=== PATIENT | male | born 1985 | race Caucasian/White ===

== ENCOUNTER 2017-06-28 21:20 | Emergency (ER) | payer OTHER ==
[~2017-06-28] VITALS: Ht 170.2 cm; Wt 90.7 kg
--- NOTE | 2017-06-28 21:28 | ED DYSPNEA/ASTHMA COMPLAINT ---
History of Present Illness General Chief Complaint: Wheezing/Asthma Stated Complaint: ASTHMA ATTACK? Source: patient Exam Limitations: no limitations Vital Signs & Intake/Output Vital Signs & Intake/Output Vital Signs Date Time Temp Pulse Resp B/P B/P Pulse O2 O2 Flow FiO2 Mean Ox Delivery Rate 06/29 2207 96 Room Air 06/28 2122 96.7 95 22 160/84 97 Room Air Allergies Coded Allergies: No Known Allergies (06/28/17) Triage Note: PT TO TRIAGE C/O ASTHMA ATTACK WITHOUT EFFECT FROM INHALER. PT STATES SHE HAS BEEN HAVING DIFFICULTY BREATHING X1 WEEK. PT WITH HOARSE VOICE. SATTING 97% IN TRIAGE. INS/EXP WHEEZING NOTED. Triage Nurses Notes Reviewed? yes HPI: 31M PMH mild intermittent asthma with just PRN Albuterol, has had 1-2 weeks of progressively worsening SOB with cough and thick yellow sputum. Recently traveled to [place], no sick contacts. Denies fever, chills, headache, sore throat, stiff neck, abdominal pain, diarrhea, dysuria. Has chest pain with deep coughing. Never been intubated, infrequent exacerbations. (Bill HOGUE,Rajesh) Reconcile Medications Albuterol Sulfate (Proventil Hfa) 90 MCG HFA.AER.AD 2 PUF INH Q4 PRN ASTHMA Prednisone 20 MG TABLET 1 TAB PO BID ASTHMA (Erasmo Dexter) Past History Travel History Traveled to [facility] past 21 day No Medical History Any Pertinent Medical History? 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 No (Bill HOGUE,Rajesh) Review of Systems Review of Systems Constitutional: Reports: no symptoms. EENTM: Reports: no symptoms. Respiratory: Reports: no symptoms. Cardiovascular: Reports: no symptoms. GI: Reports: no symptoms. Genitourinary: Reports: no symptoms. Musculoskeletal: Reports: no symptoms. Skin: Reports: no symptoms. Neurological/Psychological: Reports: no symptoms. Hematologic/Endocrine: Reports: no symptoms. Immunologic/Allergic: Reports: no symptoms. All Other Systems: Reviewed and Negative (Rajesh France MD) Physical Exam Physical Exam General Appearance: well developed/nourished, mild distress Head: atraumatic, normal appearance Eyes: Bilateral: normal appearance. Ears, Nose, Throat: normal ENT inspection, hearing grossly normal Neck: normal inspection, supple, full range of motion Respiratory: wheezing Cardiovascular: regular rate/rhythm Gastrointestinal: soft, non-tender Extremities: normal inspection, normal range of motion Neurologic/Psych: awake, alert, oriented x 3, normal mood/affect Skin: intact, normal color, warm/dry Core Measures ACS in differential dx? No CVA/TIA Diagnosis No Sepsis Present: No Sepsis Focused Exam Completed? No (Rajesh France MD) Progress Differential Diagnosis: asthma, AMI, altitude sickness, bronchitis, costochondritis, CHF, COPD, musculoskeletal pain, pericarditis, pulmonary embolism, pneumonia, pneumothorax, rib fracture, unstable angina Plan of Care: Orders Procedure Date/time Status XRY-PORTABLE CHEST XRAY 06/28 2129 Active Improved after nebulizer treatment, now at baseline, no further wheezing, not hypoxic, CXR negative. Will discharge on Prednisone and Albuterol with outpatient follow up. Diagnostic Imaging: Viewed by Me: Radiology Read. Discussed w/RAD: Radiology Read. Radiology Impression: PATIENT: KADEN VELASQUEZ PRESENT AGE: 31 PATIENT ACCOUNT NO: [id number] : 83 LOCATION: [facility] ORDERING PHYSICIAN: Rajesh France MD SERVICE DATE: 06/28/17-2129 EXAM TYPE: RAD - XRY-PORTABLE CHEST XRAY EXAMINATION: XR PORTABLE CHEST CLINICAL INFORMATION: 31- year-old man with productive cough. COMPARISON: None TECHNIQUE: Portable frontal view of the chest was obtained. FINDINGS: The lungs are well expanded and clear, without evidence of focal airspace consolidation or pneumothorax. Heart size is within the range of normal. There are no pleural effusions. IMPRESSION: No radiographic evidence of an acute cardiopulmonary process. DICTATED BY: Monique Moran MD DATE/TIME DICTATED:06/28/172157 MARKETING TRAFFIC MANAGER:MIROSLAVA DATE/TIME TRANSCRIBED:06/28/172157 CONFIDENTIAL, DO NOT COPY WITHOUT APPROPRIATE AUTHORIZATION. <Electronically signed in Other Vendor System> SIGNED BY: Monique Moran MD 06/28/172201 Initial ED EKG: none (Rajesh France MD) Departure Departure Disposition: HOME OR SELF CARE Condition: Stable Clinical Impression Primary Impression: Asthma exacerbation Qualifiers: Asthma severity: mild Asthma persistence: intermittent Qualified Code: J45.21 - Mild intermittent asthma with (acute) exacerbation Secondary Impressions: Acute bronchitis Qualifiers: Bronchitis organism: unspecified organism Qualified Code: J20.9 - Acute bronchitis, unspecified Additional Instructions: Follow up with your PCP. Return to ER if new or worsening symptoms. Departure Forms: Customer Survey General Discharge Information Prescriptions: Current Visit Scripts Prednisone 1 TAB PO BID #10 TAB Albuterol Sulfate (Proventil Hfa) 2 PUF INH Q4 PRN ASTHMA #1 INHAL (Bill HOGUE,Rajesh) Departure Comments 06/28/17 Breathing improved. Patient feels better and ready to go home. Symptoms are consistent with asthma. Patient was signed out to me by Dr. FRANCE and plan was discharge after pt was obereved for no worsening symptoms. He required one more nebulizer treatment and then felt stable for discharge. (Erasmo Dexter) Critical Care Note Critical Care Note Critical Care Time: non-applicable (Erasmo Dexter)
[2017-06-28] MEDS ORDERED: PROVENTIL HFA6.7 GM INH (22:01)
[2017-06-28] MEDS ORDERED: PREDNISONE20 M1 PO (22:01)
--- NOTE | 2017-06-28 22:02 | RADIOLOGY REPORT ---
EXAMINATION: XR PORTABLE CHEST CLINICAL INFORMATION: 31-year-old man with productive cough. COMPARISON: None TECHNIQUE: Portable frontal view of the chest was obtained. FINDINGS: The lungs are well expanded and clear, without evidence of focal airspace consolidation or pneumothorax. Heart size is within the range of normal. There are no pleural effusions. IMPRESSION: No radiographic evidence of an acute cardiopulmonary process.
[2017-06-28 23:24] VITALS: BP 154/77
== END 2017-06-28 23:24 ==
LOC: ERH 21:20
DX: J45.901 Unspecified asthma with (acute) exacerbation (principal); J20.9 Acute bronchitis, unspecified
CPT/HCPCS: 1263; 71045

== ENCOUNTER 2017-10-07 13:35 | Emergency (ER) | payer OTHER ==
[~2017-10-07] VITALS: Ht 170.2 cm; Wt 90.7 kg
[~2017-10-07 13:35] MED LIST: PREDNISONE20 M1 PO; PROVENTIL HFA6.7 GM INH
--- NOTE | 2017-10-07 13:55 | ED PSYCHIATRIC COMPLAINT ---
History of Present Illness General Chief Complaint: Psychiatric Related Complaint Stated Complaint: PT IS POSTIVE FOR SI Source: patient Exam Limitations: no limitations Vital Signs & Intake/Output Vital Signs & Intake/Output Vital Signs Date Time Temp Pulse Resp B/P B/P Pulse O2 O2 Flow FiO2 Mean Ox Delivery Rate 10/07 1613 98.1 97 16 148/71 98 Room Air 10/07 1442 98 Room Air 10/07 1341 98.1 93 20 137/76 98 Room Air Allergies Coded Allergies: No Known Allergies (06/28/17) Reconcile Medications Albuterol Sulfate (Proventil Hfa) 90 MCG HFA.AER.AD 2 PUF INH Q4 PRN ASTHMA Prednisone 20 MG TABLET 1 TAB PO BID ASTHMA Triage Note: PT C/O FEELING ANXIOUS WITH DEPRESSION. STATES HE FEELS LIKE HIS MEDS AREN'T WORKING EFFECTIVELY THEY USED TO. STATES HE FEELS + SI WITHOUT PLAN PT COMMITS TO SAFETY WHILE IN ED. SIB DR LORA Triage Nurses Notes Reviewed? yes Onset: Gradual Duration: intermittent Timing: recent history Severity: mild Associated Symptoms: suicidal ideation HPI: Mr. Duenas is a 32 year old male coming in due to recent suicidal ideation one month ago. Today he had an appointment with his primary care physician Dr. Adam Lora, who referred him to the ED. Patient has a 14 year history of depression, anxiety, panic disorder, and ADHD. He only takes Lexapro. Patient endorsed that his anxiety has been worsening over the past year, and has gotten increasingly worse over the past month. He has been having difficulty falling asleep, he feels guilty, has low energy, has trouble concentrating, anhedonia (he expressed that he avoids most activities he used to like due to anxiety), he frequently has racing thoughts, and has intermittent suicidal ideation when he is laying in bed, he has thought about getting his firearm and commiting suicide, however he has never had attempted suicide because he is able to talk himself out of the thoughts. Past History Travel History Traveled to [place] past 21 day No Medical History Any Pertinent Medical History? 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 No Review of Systems Review of Systems Constitutional: Reports: no symptoms. EENTM: Reports: no symptoms. Respiratory: Reports: no symptoms. Cardiovascular: Reports: no symptoms. GI: Reports: no symptoms. Genitourinary: Reports: no symptoms. Musculoskeletal: Reports: no symptoms. Skin: Reports: no symptoms. Neurological/Psychological: Reports: anxiety, depressed. Hematologic/Endocrine: Reports: no symptoms. Immunologic/Allergic: Reports: no symptoms. All Other Systems: Reviewed and Negative Physical Exam Physical Exam General Appearance: well developed/nourished, no apparent distress, alert, awake , comfortable Head: atraumatic, normal appearance Eyes: Bilateral: normal appearance. Ears, Nose, Throat: normal pharynx, normal ENT inspection Neck: normal inspection, supple, full range of motion Respiratory: normal breath sounds, chest non-tender, no respiratory distress Cardiovascular: regular rate/rhythm Gastrointestinal: normal bowel sounds, soft, non-tender Extremities: normal range of motion Neurological/Psychiatric: awake, alert, normal mood/affect, calm, oriented x 3 Appearance/Memory/Insight: appropriate appearance, appropriate insight, neat Behavoir/Eye Contact/Speech: cooperative, normal speech, good eye contact Thoughts/Hallucinations: normal thought pattern Skin: intact SAD PERSONS SAD PERSONS Response Value Male Sex? yes 1 Depression/Hopelessness? yes 2 Social Support? has support 0 Stated Future Intent? yes 2 Total 5 SAD PERSONS Done? CRISIS CONSULT OBTAINED Progress Differential Diagnosis: drug intoxication, drug overdose, drug withdrawal, electrolyte abnormality Plan of Care: Orders Procedure Date/time Status Regular Diet 10/07 D Active Add-on Test (ER Only) 10/07 1438 Active Continuous Observation Monitor 10/07 1339 Active URINE DRUG SCREEN FOR ER ONLY 10/07 1339 Complete THYROID STIMULATING HORMONE 10/07 1339 Complete ETHANOL 10/07 1339 Complete COMPREHENSIVE METABOLIC PANEL 10/07 1339 Complete CBC WITHOUT DIFFERENTIAL 10/07 1339 Complete ED CRISIS PSYCH CONSULT 10/07 1339 Active Laboratory Tests 10/07/17 1620: Anion Gap 11, Estimated GFR > 60, BUN/Creatinine Ratio 14.0, Glucose 148 H, Calcium 9.4, Total Bilirubin 0.5, AST 50, ALT 73 H, Alkaline Phosphatase 55, Total Protein 7.8, Albumin 4.5, Globulin 3.3, Albumin/Globulin Ratio 1.4, TSH 1.180, CBC w Diff NO MAN DIFF REQ, RBC 5.07, MCV 88.5, MCH 29.9, MCHC 33.8, RDW 12.7, MPV 8.7, Gran % 67.5, Lymphocytes % 24.7, Monocytes % 4.1, Eosinophils % 3.2, Basophils % 0.5, Absolute Granulocytes 6.1, Absolute Lymphocytes 2.3, Absolute Monocytes 0.4, Absolute Eosinophils 0.3, Absolute Basophils 0, Serum Alcohol < 10.0 10/07/17 1538: Urine Opiates Screen < 100, Methadone Screen 56, Barbiturate Screen < 60, Ur Phencyclidine Scrn < 6.00, Amphetamines Screen < 100, U Benzodiazepines Scrn < 85, Urine Cocaine Screen < 50, Urine Cannabis Screen < 5.00 Comments: Patient has been seen and evaluated by the human relations teacher. Patient is stable for discharge. Departure Departure Disposition: HOME OR SELF CARE Condition: Stable Clinical Impression Primary Impression: Depression Referrals: Guido HOGUE,Adam Pelaez (PCP/Family) Additional Instructions: Please follow up as per recommendations of the human relations teacher. Call 211 or return immediately to the emergency department for any concerns of harming yourself, anyone else or for any other concerns. Departure Forms: Customer Survey General Discharge Information
[2017-10-07 16:26] LABS: ABSOLUTE BASOPHIL COUNT 0 /CUMM (0.0-0.2); ABSOLUTE EOSINOPHIL COUNT 0.3 /CUMM (0.0-0.7); ABSOLUTE GRANULOCYTE CT 6.1 /CUMM (1.4-6.5); ABSOLUTE LYMPH COUNT 2.3 /CUMM (1.2-3.4); ABSOLUTE MONOCYTE COUNT 0.4 /CUMM (0.10-0.60); BASOPHIL % 0.5 % (0.0-2.0); EOSINOPHIL % 3.2 % (0-5); GRANULOCYTE % 67.5 % (42.2-75.2); HEMATOCRIT 44.8 % (42-52); MEAN CORPUSCULAR HGB 29.9 PG (27.0-31.0); MEAN CORPUSCULAR HGB CONC 33.8 G/DL (33.0-37.0); MEAN CORPUSCULAR VOLUME 88.5 FL (80.0-94.0); MEAN PLATELET VOLUME 8.7 FL (7.4-10.4); PLATELET COUNT 284 /CUMM (130-400); RBC DISTRIBUTION WIDTH 12.7 % (11.5-14.5); RED BLOOD CELL CT 5.07 /CUMM (4.70-6.10); WHITE BLOOD CELL COUNT 9.1 /CUMM (4.8-10.8)
[2017-10-07] MEDS ORDERED: ALBUTEROL2.5 MG/3 M INH/SOL (18:30)
[2017-10-07] MEDS ORDERED: MONTELUKAST SOD10 M1 PO (18:30)
[2017-10-07] MEDS ORDERED: SYMBICORT 16010.2 GM INH (18:31)
[2017-10-07 19:18] VITALS: BP 126/70
--- NOTE | 2017-10-07 20:38 | ED PSYCH CRISIS CONSULTATION ---
Crisis Consult Basic Assessment Date of Consult: 10/07/17 Responsible Person/Accompanied By: Patient arrived himself Insurance Authorization: Insurance #1: Insurance name: AWA CRISTOBALO Policy number: [id number] ED Provider: Patient's ED Provider: Enrique HOGUE,Manan Desir Primary Care Physician: Patient's PCP: Adam Lora MD PCP's Current Psychiatrist: No current psychiatric provider. Chief Complaint: Psychiatric Related Complaint Patient's Quote: "Met with my primary care...she told me to go to the ER." Present Illness: Patient is a 32 year old Macedonian male evaluated by crisis today due to concern of suicidal ideation reported at his primary care physician's office. Patient arrived by himself voluntarily for evaluation. Patient admits to reporting suicidal ideation because the screening tool specified "in the past 6 months" but patient asserts he is not experiencing current suicidal ideation, intent or planning and has not experienced any suicidal ideation in the past month. Patient does report increasing depression and anxiety in the past 6 months. Patient reports that his family history is positive for depression and anxiety. Patient denies any panic attacks recently and reports last panic attack over 4 years ago. Patient states he has experienced depression since attending college. His first encounter with mental health treatment was with a counselor at [facility]. Patient is diagnosed with attention-deficit/hyperactivity disorder and was prescribed Ritalin by neurologist Dr. Sloane Lewis MD in [place], [place] until ~ age 18 when he discontinued the stimulant medication. Patient was also seen by an outpatient therapist, Lio Winkler LCSW and discontinued this treatment ~ 2.5 years ago. Patient has most recently been followed by his primary care physician consistently for the past 4 years - primary care physician Dr. Adam Lora has prescribed Lexapro medication for depression and anxiety. Patient asserts the medication has been helpful but he would like to be considered for another medication due to recent symptoms. Patient also reports symptoms of increased irritability. He assessed regular sleep ~5 hours per day and denies any eating concerns. Patient reports suicidal ideation over a month ago in the context of reading about political affairs nationally. Patient states he had random suicidal thought that he should "just end it" because of how bleak the political climate seemed. Patient denies any recent examples where he has had this feeling. Patient also reports one past incident where he cut himself shallowly with a butter knife when he felt overwhelmed in college but asserts this was not suicidal. 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 Patient had an asthma attack this year which was evaluated at this emergency department - patient reports this was work related and his HR person was able to make accommodation so he is not exposed to that chemical anymore. Patient asserts he has had some issues with the company's RIG SUPERINTENDENT not being supportive / difficult and one particular coworker who patient has had conflict with. Patient denies any medical concerns and was medically cleared by attending emergency department physician Dr. Nunez with no acute findings. Patient denies substance use and his urine toxicology screening was negative for all substances. Patient does report alcohol use ~2 x per week with at most ~2 drinks on those occasions. Patient reports coffee use at ~2 cups per day. Patient denies tobacco use. Patient asserts he has a supportive "large" family including parents, cousins and his girlfriend who happens to be a licensed clinical social media coordinator. Patient is an only child and has no siblings. Patient also has supportive network of friends who are aware of his recent increased symptoms of stress, anxiety and depression. Patient presents alert, oriented with euthymic mood and congruent affect. Patient denies auditory / visual hallucinations current or past and there is no indication of psychosis , delusions, paranoia. A Stout Suicide Severity Rating Scale was completed (C.-S.S.R.S.) with the following protective factors identified : i.) identified reason for living ii.) responsibility to family iii. ) supportive social network / family iv.) fear of v.) engaged in work. Patient's Address: [address] [place] [address] Other Phone Number: Who Do You Live With? Cousin Family/Informants Interviewed: Spoke to cousin Italo Jc by phone . Cousin denies any safety concerns regarding Rober being discharged. Italo agrees to safety plan of securing Rober's firearm in his gun safe. Allergies - Coded Allergies: No Known Allergies (06/28/17) Current Medications - Scheduled Medications Budesonide/Formoterol Fumarate (Symbicort 160-4.5 Mcg Inhaler) 160 MCG-4.5 MCG/ ACTUATION HFA.AER.AD 2 PUF INH BID ASTHMA (Reported) Entered as Reported by Karen Perez on 10/07/17 1831 Montelukast Sodium 10 MG TABLET 1 TAB PO DAILY ALLERGIES/RESP. (Reported) Entered as Reported by Karen Perez on 10/07/17 1830 Scheduled PRN Medications Albuterol Sulfate 2.5 MG/3 ML (0.083 %) VIAL.NEB 1 Vial INH/JEANIE AD PRN RESP. (Reported) Entered as Reported by Karen Perez on 10/07/17 1830 Albuterol Sulfate (Proventil Hfa) 90 MCG HFA.AER.AD 2 PUF INH Q4 PRN ASTHMA #1 INHAL Prescribed by Rajesh Khan MD on 06/28/17 Laboratory Results: Laboratory Tests 10/07/17 1620: Anion Gap 11, Estimated GFR > 60, BUN/Creatinine Ratio 14.0, Glucose 148 H, Calcium 9.4, Total Bilirubin 0.5, AST 50, ALT 73 H, Alkaline Phosphatase 55, Total Protein 7.8, Albumin 4.5, Globulin 3.3, Albumin/Globulin Ratio 1.4, TSH 1.180, CBC w Diff NO MAN DIFF REQ, RBC 5.07, MCV 88.5, MCH 29.9, MCHC 33.8, RDW 12.7, MPV 8.7, Gran % 67.5, Lymphocytes % 24.7, Monocytes % 4.1, Eosinophils % 3.2, Basophils % 0.5, Absolute Granulocytes 6.1, Absolute Lymphocytes 2.3, Absolute Monocytes 0.4, Absolute Eosinophils 0.3, Absolute Basophils 0, Serum Alcohol < 10.0 10/07/17 1538: Urine Opiates Screen < 100, Methadone Screen 56, Barbiturate Screen < 60, Ur Phencyclidine Scrn < 6.00, Amphetamines Screen < 100, U Benzodiazepines Scrn < 85, Urine Cocaine Screen < 50, Urine Cannabis Screen < 5.00 Past History Past Medical History Neurological: NONE EENT: NONE Cardiovascular: NONE Respiratory: asthma Gastrointestinal: NONE Hepatic: NONE Renal: NONE Musculoskeletal: NONE Psychiatric: anxiety, depression, insomnia, ADHD Panic disorder Endocrine: NONE Blood Disorders: NONE Cancer(s): NONE 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 Patient has sucessful mental health treatment episodes in the past. Patient has a supportive girlfriend. Patient has a supportive family. Patient is motivated to initiate mental health treatment at [facility]. Physical Limitations (Interventions): None assessed Psychiatric Treatment History Psych Treatment Psychiatric Treatment Yes Inpatient Treatment No Outpatient Treatment Yes Location of Treatment [facility] in [place] Reason for Treatment Depression / Anxiety Dates of Treatment Ended 2.5 years ago. Response to Treatment Positive Diagnosis by History: Depressive disorder Generalized anxiety disorder Attention-deficit/hyperactivity disorder Substance Use/Abuse History Drug Use/Abuse Substances Used/Abused No Substance Abuse Treatment Substance Abuse Treatment Past Substance Abuse [place] No Current Mental Status Mental Status Orientation: Person, Place, Situation Affect: WNL Speech: WNL Neuro-vegetative: Anhedonia Appearance Appearance- Dress/Hygiene: Patient dressed in hospital attire. No hygiene concerns . Patient has a full palacios. Behaviors Thought Process: WNL Thought Content: WNL Memory: WNL Insight: Fair SI/HI Risk Assessment Past Suicidal Ideation/Attempts Yes Current Suicidal Ideation/Att No (Patient denies no SI in >month) Past Homicidal Ideation/Att: No Current Homicidal Ideation/Attempts No (Patient denies. ) Degree of Intent: None Risk Factors: weapons access, male Lethality Ratin (mild) PTSD Checklist PTSD Done? patient declined (No trauma history reported. ) ED Management Sitter: Yes Restraints: No (Patient is calm & cooperative.) DSM5/PS Stressors/Medical Prob Diagnosis' (DSM 5, Stressors, Medical): F32.9 Unspecified depressive disorder F41.1 Generalized anxiety disorder Rule - out for: F90.9 Unspecified attention-deficit/hyperactivity disorder Current GAF: 55 Departure Disposition Psych Medical Clearance Date: 10/07/17 Medically Cleared at: 1720 Time Started: 1719 Time Ended: 1819 Psychiatrist Consulted: Dr. Lorrie Golden MD Date Disposition Established: 10/07/17 Time Disposition Established: 1819 Plan for Disposition - Modality: Outpatient Facility: [facility] Follow-up Appt Date: 10/14/17 Follow-Up Appt Time: 1800 Contact: Jessy FARHANA Arriaga Telephone: [phone] Rationale for Disposition: Crisis evaluation reviewed with on-call psychiatrist Dr. Chantel HOGUE. Patient does not present with any high risk factors based on evaluation today which would warrant further hold in the emergency department or consideration of an inpatient psychiatric admission. Patient denies current suicidal ideation, intent or plan and in fact denies any symptoms in the past month. It seems he responded affirmatively to a screening at his primary care physician's office about suicidal ideation which specified anytime in the past 6 months and the PCP sent patient to the emergency department out of an abundance of caution. Patient does report stressors and related increased anxiety and depression which he admits should be addressed with outpatient mental health treatment. Patient is not satisfied with his Lexapro medication and would like to see a psychiatric provider for medication management of psychotropics. Patient also will contact his former outpatient therapist Lio Winkler LCSW to re-establish with him. Patient asserts he feels safe to return home. This commercial insurance underwriter contacted patient's roomate / cousin Jomar Jc and assessed a safety plan where Jomar will observe for any sudden changes in mood and will also secure any guns that Rober owns in his gun safe. Jomar was amenable to this plan and denies any concerns regarding Rober being discharged. Referrals Guido HOGUE,Adam Pelaez (PCP/Family)
== END 2017-10-07 19:14 ==
LOC: ERH 13:35
PROVIDERS: Physician Assistant
DX: F32.9 Major depressive disorder, single episode, unspecified (principal)
CPT/HCPCS: 80307; G0480